=== PATIENT | female | born 1985 | race Caucasian/White ===

== ENCOUNTER 2018-12-17 16:28 | Emergency (ER) | payer BC ==
[2018-12-17 16:55] VITALS: BP 157/86; PULSE 92; TEMP 98.6; BMI 33.5
--- NOTE | 2018-12-17 17:32 | PDOC ---
Documentation entered by Baylee Grider SCRIBE, acting as scribe for Qian Greene MD. Qian Greene MD: This documentation has been prepared by the Marni gaines Brenda, SCRIBE, under my direction and personally reviewed by me in its entirety. I confirm that the documentation accurately reflects all work, treatment, procedures, and medical decision making performed by me. History of Present Illness - General Chief Complaint: Shortness of Breath Stated Complaint: SOB Time Seen by Provider: 12/17/18 16:32 History Source: Patient Exam Limitations: No Limitations - History of Present Illness Initial Comments: 12/17/18 17:18 33-year-old female with no significant past medical history, recent right ankle surgery in September 2018 presents to the emergency Department with shortness of breath for 2 days. Patient reports the shortness of breath started 2 nights ago while she was in bed and states she feels like she has a hard time getting a breath in. She reports the symptoms have slowly progressed over the course of 2 days. She admits to mild sternal non pleuritic chest discomfort last night while in bed, that she does not currently have. She reports her shortness of breath is made worse with exertion, and also when lying down flat in bed. She also reports a nonproductive cough that started last night. She was concerned she had a chest cold and used Vicks VapoRub with minimal relief. Today she presented to urgent care for evaluation, states she thought she needed a nebulizer treatment. Urgent care advised her to come to the emergency department to rule out pulmonary embolism. She does note mildly increased swelling in the right lower extremity although she states she has been encouraged to walk more on her right lower extremity recently for PT. She denies any personal or family history of clotting. She denies any recent travel or immobility. She denies any associated fevers, chills, headache, dizziness, weakness, numbness. Denies nausea, vomiting, diarrhea, abdominal pain. Denies any urinary symptoms. First date of LMP is today. Past History - Past Medical History Allergies/Adverse Reactions: Allergies Allergy/AdvReac Type Severity Reaction Status Date / Time No Known Allergies Allergy Verified 12/17/18 16:29 Home Medications: Ambulatory Orders NK [No Known Home Medication] 12/17/18 Review of Systems - Review of Systems Able to Perform ROS?: Yes Comments:: 12/17/18 17:00 GENERAL/CONSTITUTIONAL: No fever or chills. No weakness. HEAD, EYES, EARS, NOSE AND THROAT: No change in vision. No ear pain or discharge. No sore throat. GASTROINTESTINAL: No nausea, vomiting, diarrhea or constipation. GENITOURINARY: No dysuria, frequency, or change in urination. CARDIOVASCULAR: +chest pain and shortness of breath. RESPIRATORY: +cough, no wheezing, or hemoptysis. MUSCULOSKELETAL: No joint swelling or pain. +RLE edema. No neck or back pain. SKIN: No rash NEUROLOGIC: No headache, vertigo, loss of consciousness, or change in strength/ sensation. ENDOCRINE: No increased thirst. No abnormal weight change. HEMATOLOGIC/LYMPHATIC: No anemia, easy bleeding, or history of blood clots. ALLERGIC/IMMUNOLOGIC: No hives or skin allergy. *Physical Exam - Vital Signs Last Vital Signs Temp Pulse Resp BP Pulse Ox 98.6 F 92 H 20 157/86 99 12/17/18 16:29 12/17/18 16:29 12/17/18 16:29 12/17/18 16:29 12/17/18 16:29 - Physical Exam Comments: 12/17/18 16:45 GENERAL: Awake, alert, and fully oriented, in no resp distress EYES: PERRLA, sclera anicteric, conjunctiva clear ENT: Oropharynx clear without exudates. Moist mucosa NECK: Normal ROM, supple, no lymphadenopathy, JVD, or masses LUNGS: Breath sounds equal, clear to auscultation bilaterally. No wheezes, and no crackles HEART: Regular rate and rhythm, normal S1 and S2, no murmurs, rubs or gallops ABDOMEN: Soft, nontender, normoactive bowel sounds. No guarding, no rebound. No masses EXTREMITIES: R calf with 1+ non pitting edema to mid calf. No calf ttp. NEUROLOGICAL: Normal speech, cranial nerves intact, equal strength and sensation b/l SKIN: R medial ankle with 4cm incision that is c/d/i. Otherwise, warm, Dry, normal turgor, no rashes or lesions noted. Heart Score/ECG Review #1 12/17/18 17:31 EKG read and interpreted by me: NSR, rate 89. Normal axis and intervals. No GREG . Isolated TWI III. ED Treatment Course - LABORATORY CBC & Chemistry Diagram: 12/17/18 17:36 12/17/18 17:36 Medical Decision Making - Medical Decision Making 12/17/18 17:28 33-year-old female with recent ankle surgery in September 2018 presents emergency Department with 2 days of shortness of breath. Also sternal chest pressure last night that self resolved. Vitals within normal limits EKG non ischemic Exam with 1+ nonpitting edema of the right lower extremity. Differential includes pulmonary embolism versus pneumonia versus bronchitis versus lower respiratory infection. Pt is moderate risk given swelling to RLE and thus will obtain CTA of the chest Plan discussed with pt who is in agreement 12/17/18 19:08 Labs, XR wnl CTA pending Case signed out to Dr. Singh for further mgmt/dispo *DC/Admit/Observation/Transfer Diagnosis at time of Disposition: Shortness of breath, Leg swelling, Chest discomfort - Discharge Dispostion Disposition: HOME Condition at time of disposition: Stable - Referrals - Patient Instructions Additional Instructions: Return to the emergency department immediately with ANY new, persistent or worsening symptoms. Continue any medications as previously prescribed by your physician. You should follow up with your primary doctor as soon as possible regarding today's emergency department visit. . Please make sure your doctor reviews the results of your emergency evaluation. Thank you for coming to the Emergency Department today for your care. It was a pleasure to see you today. Please note that your evaluation is INCOMPLETE until you follow-up with your doctor. - Post Discharge Activity - Attestations Physician Attestion: 12/18/18 20:29 I, Dr. Qian Greene MD, attest that this document has been prepared under my direction and personally reviewed by me in its entirety. I further attest, that it accurately reflects all work, treatment, procedures and medical decision -making performed by me.
[2018-12-17 17:51] LABS: BASO % 0.5 % (0-2.0); EOS % 1.3 % (0-4.5); HEMATOCRIT 42.7 % (32.4-45.2); HEMOGLOBIN 14.1 GM/dl (10.7-15.3); LYMPH % 32.9 % (8-40); MCH 31.7 pg (25.7-33.7); MEAN CELL VOLUME 96.2 fl (80-96); MEAN PLT VOLUME 8.1 fl (7.5-11.1); MONO % 7.2 % (3.8-10.2); NEUT % 58.1 % (42.8-82.8); PLATELET COUNT 280 K/MM3 (134-434); RBC 4.44 M/mm3 (3.60-5.2); RDW 12.7 % (11.6-15.6)
[2018-12-17 18:00] LABS: INR 1.16 (0.82-1.09); PROTHROMBIN TIME (PATIENT) 12.9 SEC (10.2-13.0)
[2018-12-17 18:03] LABS: ALBUMIN 4.2 g/dl (3.4-5.0); BILIRUBIN,TOTAL 0.5 mg/dl (0.2-1); CALCIUM 9.6 mg/dl (8.5-10); POTASSIUM 3.8 mmol/L (3.5-5.1); TOT PROT 7.7 g/dl (6.4-8.2)
--- NOTE | 2018-12-17 20:56 | PDOC ---
*Physical Exam - Vital Signs Last Vital Signs Temp Pulse Resp BP Pulse Ox 98.6 F 92 H 20 157/86 99 12/17/18 16:29 12/17/18 16:29 12/17/18 16:29 12/17/18 16:29 12/17/18 16:29 ED Treatment Course - LABORATORY CBC & Chemistry Diagram: 12/17/18 17:36 12/17/18 17:36 - ADDITIONAL ORDERS Additional order review: Laboratory Results 12/17/18 12/17/18 12/17/18 17:36 17:36 17:36 PT with INR 12.9 INR 1.16 PTT (Actin FS) Sodium Potassium Chloride Carbon Dioxide Anion Gap BUN Creatinine Est GFR (CKD-EPI)AfAm Est GFR (CKD-EPI)NonAf Random Glucose Calcium Total Bilirubin AST ALT Alkaline Phosphatase Troponin I < 0.03 B-Natriuretic Peptide 50.6 Total Protein Albumin Urine HCG, Qual 12/17/18 12/17/18 12/17/18 17:36 17:36 17:36 PT with INR INR PTT (Actin FS) 27.8 Sodium 137 Potassium 3.8 Chloride 103 Carbon Dioxide 26 Anion Gap 8 BUN 20.0 H Creatinine 1.0 Est GFR (CKD-EPI)AfAm 84.53 Est GFR (CKD-EPI)NonAf 72.93 Random Glucose 105 Calcium 9.6 Total Bilirubin 0.5 AST 24 ALT 27 Alkaline Phosphatase 82 Troponin I B-Natriuretic Peptide Total Protein 7.7 Albumin 4.2 Urine HCG, Qual Negative 12/17/18 17:36 RBC 4.44 MCV 96.2 H MCHC 33.0 RDW 12.7 MPV 8.1 Neutrophils % 58.1 Lymphocytes % 32.9 Monocytes % 7.2 Eosinophils % 1.3 Basophils % 0.5 Progress Note - Progress Note Progress Note: Care of this patient was transferred to [place] from Dr. Ghotra at 1900 hrs. Patient is a 33-year-old female who was sent in for a CT angios of her chest to rule out PE. Patient has a CT angiogram of her chest pending at this point. 21:[address] angios was negative for any acute chest pathology specifically no evidence of pulmonary embolism. Patient discharged home will follow-up with her primary care doctor. *DC/Admit/Observation/Transfer Diagnosis at time of Disposition: Shortness of breath - Discharge Dispostion Disposition: HOME Decision to Admit order: No - Referrals - Patient Instructions Additional Instructions: Return to the emergency department immediately with ANY new, persistent or worsening symptoms. Continue any medications as previously prescribed by your physician. You should follow up with your primary doctor as soon as possible regarding today's emergency department visit. . Please make sure your doctor reviews the results of your emergency evaluation. Thank you for coming to the Emergency Department today for your care. It was a pleasure to see you today. Please note that your evaluation is INCOMPLETE until you follow-up with your doctor. - Post Discharge Activity
--- NOTE | 2018-12-18 13:49 | EKG ---
Test Reason : Blood Pressure : / mmHG Vent. Rate : 089 BPM Atrial Rate : 089 BPM P-R Int : 152 ms QRS Dur : 086 ms QT Int : 360 ms P-R-T Axes : 011 022 009 degrees QTc Int : 438 ms NORMAL SINUS RHYTHM NORMAL ECG NO PREVIOUS ECGS AVAILABLE Confirmed by REBECCA DIAZ MD ([id number]) on 12/18/2018 1:48:51 PM Referred By: DR PATRICK Confirmed By:REBECCA DIAZ MD
== END 2018-12-17 21:02 | disposition home or self-care (01) ==
LOC: FER 16:28
DX: R06.02 Shortness of breath (principal)
CPT/HCPCS: 36415; 71275-TC; 80053; 83880; 84484; 84703; 85025; 85610; 85730; 93005; 93971-TC; 99284-25